=== PATIENT | male | born 1980 | race Caucasian/White ===

== ENCOUNTER 2017-12-21 12:42 | Emergency (ER) | payer MEDICAID ==
[~2017-12-21] VITALS: Ht 182.9 cm; Wt 66.0 kg
[2017-12-21] MEDS ORDERED: KETOROLAC 15MG/ML VIAL IM ONE (14:30)
[2017-12-21] MEDS ORDERED: BACITRACIN ZINC OINT UDPKT TOP ONE (14:45)
[2017-12-21 16:40] VITALS: BP 125/86
== END 2017-12-21 16:41 | disposition home or self-care (01) ==
LOC: ER 12:42
DX: S20.211A Contusion of right front wall of thorax, initial encounter (principal); M79.642 Pain in left hand; M25.562 Pain in left knee; Y08.89XA Assault by other specified means, initial encounter; Y93.89 Activity, other specified; Y92.89 Other specified places as the place of occurrence of the external cause; Y99.8 Other external cause status
CPT/HCPCS: 29125; 71045; 73100; 73130; 96372; 99284; J1885

== ENCOUNTER 2022-06-04 14:11 | Emergency (ER) | payer SELFPAY ==
[~2022-06-04] VITALS: Ht 182.9 cm; Wt 69.0 kg
[2022-06-04] MEDS ORDERED: TETANUS, DIPHTHERIA, PERTUSSIS VAC/PF 0.5ML (>10YR OLD) IM ONE (14:45)
[2022-06-04] MEDS ORDERED: IBUPROFEN 600MG TABLET PO ONE (15:45)
[2022-06-04] MEDS ORDERED: IBUP-2029 MT (16:09)
[2022-06-04 16:10] VITALS: BP 150/93
== END 2022-06-04 17:00 | disposition home or self-care (01) ==
LOC: ER 14:22
DX: S02.2XXA Fracture of nasal bones, initial encounter for closed fracture (principal); Y04.2XXA Assault by strike against or bumped into by another person, initial encounter; Y93.89 Activity, other specified; Y92.89 Other specified places as the place of occurrence of the external cause; Y99.8 Other external cause status
CPT/HCPCS: 90471; 90715; 99285